=== PATIENT | male | born 1950 | race Hispanic/Latino ===

== ENCOUNTER → 2017-12-03 | Outpatient (CLI) | payer OTHER ==
[~2017-12-03] MED LIST: ASPI-1005 PO; ATOR20TA65 PO; BACL10TA PO; DILT240C11 PO; DILT240C3 PO; FURO20TA6 PO; FURO40TA5 PO; HYDR25TA PO; INSLAN SQ; LORA0.5T2 PO; METF10004 PO; METO25 PO; OXYC10TA48 PO; PRAV20TA4 PO; PROP10DR2 OU; TRAN4TAB24 PO; XALA2.5OS OU
== END | disposition home or self-care (01) ==
LOC: OIH 11:50
PROVIDERS: ATTEND Internal Medicine Cardiovascular Disease
DX: Z13.6 Encounter for screening for cardiovascular disorders (principal)
CPT/HCPCS: 75571

== ENCOUNTER → 2017-12-16 | Outpatient (CLI) | payer OTHER ==
[~2017-12-16] MED LIST changes: +REGADENOSON 0.4 MG/5 ML PF SYG IVP SCH
== END | disposition home or self-care (01) ==
LOC: SHCH 12:40
PROVIDERS: ATTEND Internal Medicine Cardiovascular Disease
DX: I25.10 Atherosclerotic heart disease of native coronary artery without angina pectoris (principal); I10 Essential (primary) hypertension
CPT/HCPCS: 78452; 93017; 96374; A9500 ×2; J2785

== ENCOUNTER 2018-01-06 05:53 | Day surgery (SDC) | payer OTHER ==
[2018-01-04 11:45] VITALS: BP 164/88
[2018-01-04 11:58] LABS: BASOPHILS % (AUTO) 0.5 % (0.0-5.0); HEMATOCRIT 38.1 % (42-54); LYMPHOCYTES % (AUTO) 18.5 % (21.0-51.0); MEAN CORPUSCULAR HGB CONC 34.5 g/dL (32.0-36.0); PLATELET COUNT (AUTO) 241 K/uL (130-400); RED BLOOD CELL COUNT(AUTO) 4.23 MIL/uL (4.50-6.20); RED CELL DISTRIBUTION WIDTH 16.2 % (11.0-15.5); WHITE BLOOD COUNT (AUTO) 7.6 K/uL (4.8-10.8)
[2018-01-04 12:03] LABS: APPEARANCE,URINE Clear (CLEAR); BILIRUBIN,URINE Negative (NEGATIVE); COLOR,URINE Yellow (YELLOW); GLUCOSE, URINE (UA) Negative (NEGATIVE); KETONES,URINE Negative (NEGATIVE); LEUKOCYTE ESTERASE ,URINE Negative (NEGATIVE); NITRATE,URINE Negative (NEGATIVE); OCCULT BLOOD,URINE Negative (NEGATIVE); PROTEIN,URINE Negative (NEGATIVE)
[2018-01-04 12:04] LABS: CREATININE 1.4 mg/dL (0.5-1.5); POTASSIUM 3.8 mmol/L (3.5-5.1)
[2018-01-04 12:12] LABS: INR 0.91 (0.85-1.15); PARTIAL THROMBOPLASTIN TIME 23.1 SEC (26.3-35.5); PROTHROMBIN TIME 9.6 SEC (9.6-11.6)
[2018-01-06] VITALS (18 sets, daily range): BP systolic 109–157; BP diastolic 58–79
[~2018-01-06] VITALS: Ht 162.6 cm; Wt 67.3 kg
[~2018-01-06 05:53] MED LIST changes: +ACETAMINOPHEN 325 MG TAB PO PRN; -ASPI-1005 PO; -ATOR20TA65 PO; -DILT240C11 PO; -DILT240C3 PO; -FURO20TA6 PO; -METO25 PO; -PROP10DR2 OU; -REGADENOSON 0.4 MG/5 ML PF SYG IVP SCH; +SODIUM CHLORIDE 0.9% 500ML 500 ML IV SCH; -TRAN4TAB24 PO; -XALA2.5OS OU
[2018-01-06] MEDS ORDERED: SODIUM CHLORIDE 0.9% 1000ML 1,000 ML IV SCH (06:00)
[2018-01-06] MEDS ORDERED: IOPAMIDOL-370 100 ML VIAL IV ONE (08:29)
[2018-01-06] MEDS ORDERED: HEPARIN SODIUM 1000UNIT/ML 10ML VIAL ONE (08:29)
[2018-01-06] MEDS ORDERED: ISOVUE-370 50ML VIAL IV ONE (08:30)
[2018-01-06] MEDS ORDERED: LIDOCAINE HCL 2% 20ML ONE (08:30)
[2018-01-06] MEDS ORDERED: LABETALOL HCL 5 MG/ML 20ML VIAL IV ONE (09:03)
[2018-01-06] MEDS ORDERED: GLUCAGON 1MG KIT 1 MG ML IM PRN (09:15)
[2018-01-06] MEDS ORDERED: DEXTROSE 5 %-0.45 % NACL 1,000 ML IV SCH (09:15)
[2018-01-06] MEDS ORDERED: DEXTROSE 50%-WATER 50 ML DISP.SYRIN IV PRN (09:15)
[2018-01-06] MEDS ORDERED: ATROPINE SULFATE 0.1 MG/ML 10 ML SYG IVP ONE (09:35)
[2018-01-06] MEDS: INSULIN HUMULIN R 100 UNIT/ML 3ML SQ SCH ×2 (11:30→17:54)
[2018-01-06] MEDS ORDERED: ACETAMINOPHEN EXTRA STRENGTH 500 MG TABLET ONE (15:49)
== END 2018-01-06 18:20 | disposition home or self-care (01) ==
LOC: DAH 05:53
PROVIDERS: ATTEND Internal Medicine Cardiovascular Disease
DX: I25.118 Atherosclerotic heart disease of native coronary artery with other forms of angina pectoris (principal); E11.9 Type 2 diabetes mellitus without complications; E78.00 Pure hypercholesterolemia, unspecified; M54.5 Low back pain; Z79.2 Long term (current) use of antibiotics; Z79.4 Long term (current) use of insulin; Z79.84 Long term (current) use of oral hypoglycemic drugs; Z79.899 Other long term (current) drug therapy; Z79.891 Long term (current) use of opiate analgesic
CPT/HCPCS: 36415; 71045; 80048; 81003; 82948 ×3; 85025; 85610; 85730; 93005; 93458; C1894; J1644 ×2; J1815 ×2; J3490 ×2; Q9967 ×2; J0461

== ENCOUNTER 2018-01-17 12:15 | Inpatient (IN) | payer OTHER ==
[~2018-01-17] VITALS: Ht 162.6 cm; Wt 75.7 kg
[~2018-01-17 12:15] MED LIST changes: -ACETAMINOPHEN 325 MG TAB PO PRN; -SODIUM CHLORIDE 0.9% 500ML 500 ML IV SCH
[2018-01-17 13:50] VITALS: BP 135/72
[2018-01-17 14:20] LABS: BASOPHILS % (AUTO) 0.7 % (0.0-5.0); EOSINOPHILS % (AUTO) 3.4 % (0.0-8.0); HEMATOCRIT 38.3 % (42-54); MEAN CORPUSCULAR HEMOGLOBIN 31.4 pg (27.0-33.0); MEAN CORPUSCULAR HGB CONC 34.7 g/dL (32.0-36.0); MEAN CORPUSCULAR VOLUME 90.4 fL (79-99); MONOCYTES % (AUTO) 7.1 % (3.0-13.0); NEUTROPHILS % (AUTO) 64.8 % (40.0-77.0); PLATELET COUNT (AUTO) 251 K/uL (130-400); RED BLOOD CELL COUNT(AUTO) 4.24 MIL/uL (4.50-6.20); RED CELL DISTRIBUTION WIDTH 14.8 % (11.0-15.5); WHITE BLOOD COUNT (AUTO) 7.3 K/uL (4.8-10.8)
[2018-01-17 14:32] LABS: HEMOGLOBIN A1C 8.1 % (4.0-6.0); INR 0.92 (0.85-1.15); PROTHROMBIN TIME 9.7 SEC (9.6-11.6)
[2018-01-17 14:46] LABS: BILIRUBIN,TOTAL 0.3 mg/dL (0.2-1.0); CREATININE 1.2 mg/dL (0.5-1.5); POTASSIUM 3.6 mmol/L (3.5-5.1); TOTAL PROTEIN, SERUM 7.7 g/dL (6.0-8.3)
[2018-01-17] MEDS ORDERED: DILT240C3 PO (14:51)
[2018-01-17] MEDS ORDERED: PROP10DR2 OU (14:51)
[2018-01-17] MEDS ORDERED: XALA2.5OS OU (14:51)
[2018-01-17] MEDS ORDERED: THROMBIN-JMI 5000 UNIT/VIAL TP ONE (15:04)
[2018-01-17] MEDS ORDERED: HEPARIN SODIUM 1000UNIT/ML 10ML VIAL ONE (15:04)
[2018-01-18] VITALS (17 sets, daily range): BP systolic 108–146; BP diastolic 52–81
[2018-01-18] MEDS ORDERED: LIDOCAINE PF 2% 5ML ABBOJECT ONE (08:53)
[2018-01-18] MEDS ORDERED: GLYCOPYRROLATE 0.2 MG/ML 5 ML VIAL ONE (08:53)
[2018-01-18] MEDS ORDERED: AMIODARONE HCL 900MG/18ML IV ONE (08:53)
[2018-01-18] MEDS ORDERED: HEPARIN SODIUM 1000UNIT/ML 10ML VIAL ONE ×2 (08:53→11:16)
[2018-01-18] MEDS ORDERED: EPINEPHRINE 1 MG/ML AMPULE ONE (08:53)
[2018-01-18] MEDS ORDERED: ESMOLOL HCL 10 MG/ML 10 ML VIAL ONE (08:53)
[2018-01-18] MEDS ORDERED: NOREPINEPHRINE BITARTRATE 1 MG/1 ML ML IV ONE (08:53)
[2018-01-18] MEDS ORDERED: PROTAMINE SULFATE 10 MG/ML 25ML VIAL IV ONE (08:53)
[2018-01-18] MEDS ORDERED: AMINOCAPROIC ACID 250 MG/ML 20 ML VIAL IV ONE ×2 (08:53→09:52)
[2018-01-18] MEDS ORDERED: MILRINONE-D5W 20 MG/100 ML 0 ML IV ONE (08:53)
[2018-01-18] MEDS ORDERED: ROCURONIUM BROMIDE 10MG/1ML 5ML VL ONE (08:53)
[2018-01-18] MEDS ORDERED: MIDAZOLAM HCL 1 MG/ML 5ML VIAL ONE (08:54)
[2018-01-18] MEDS ORDERED: PROPOFOL 10 MG/ML 20ML VIAL IV ONE (08:54)
[2018-01-18] MEDS ORDERED: NITROGLYCERIN 50 MG/D5% WATER 1 BOT ONE (10:00)
[2018-01-18] MEDS ORDERED: EPINEPHRINE 1 MG/ML 30ML VIAL IJ ONE (10:00)
[2018-01-18] MEDS: CEFUROXIME SODIUM 1.5 GM VIAL IVP SCH ×3 (10:30→22:22)
[2018-01-18] MEDS ORDERED: SODIUM CHLORIDE 0.9% 1000ML 1,000 ML IV ONE (10:42)
[2018-01-18] MEDS ORDERED: THROMBIN-JMI 5000 UNIT/VIAL TP ONE (11:17)
[2018-01-18 11:33] LABS: ABG BASE EXCESS 4.8 mmol/L (-2.0-3.0); ABG HCO3 27.7 mmol/L (21.0-28.0); ABG OXYGEN SATURATION 98.9 % (95.0-99.0); ABG PCO2 35 mmHg (35-48)
[2018-01-18] MEDS ORDERED: OCTYL 2-CYANOACRYLATE 1 EACH TP ONE (11:38)
[2018-01-18] MEDS ORDERED: PAPAVERINE HCL 30 MG/ML 2ML VIAL ONE (11:38)
[2018-01-18] MEDS ORDERED: BACITRACIN 50,000 UNIT VIAL ONE (11:39)
[2018-01-18] MEDS ORDERED: FENTANYL CITRATE PF 50 MCG/1 ML 2ML VIAL ONE ×2 (13:31)
[2018-01-18 13:37] LABS: ABG BASE EXCESS -3.9 mmol/L (-2.0-3.0); ABG HCO3 21.1 mmol/L (21.0-28.0); ABG OXYGEN SATURATION 98.9 % (95.0-99.0); ABG PCO2 38 mmHg (35-48)
[2018-01-18] MEDS ORDERED: POTASSIUM CHLORIDE 20MEQ/100ML 100 ML IV ONE ×2 (13:37→14:31)
[2018-01-18] MEDS ORDERED: SODIUM CHLORIDE 0.9% 500ML 500 ML IV SCH (14:03)
[2018-01-18] MEDS ORDERED: PROPOFOL 1000 MG/100 ML 100 ML IV PRN (14:15)
[2018-01-18] MEDS ORDERED: NOREPINEPHRINE 4MG/NS 250ML 250 ML IV PRN (14:15)
[2018-01-18] MEDS ORDERED: NITROGLYCERIN 50 MG/D5% WATER 250 BOT IV SCH (14:15)
[2018-01-18] MEDS ORDERED: SODIUM CHLORIDE 0.9% 10 ML VIAL IVP PRN (14:15)
[2018-01-18] MEDS ORDERED: ACETAMINOPHEN 650 MG SUPPOSITORY RC PRN (14:15)
[2018-01-18] MEDS ORDERED: DEXTROSE 50%-WATER 50 ML DISP.SYRIN IV PRN (14:15)
[2018-01-18] MEDS ORDERED: MORPHINE SULFATE 2 MG/ML 1ML SYG IV PRN (14:15)
[2018-01-18] MEDS ORDERED: GLUCAGON 1MG KIT 1 MG ML IM PRN (14:15)
[2018-01-18] MEDS ORDERED: MAGNESIUM 2GM PREMIX 50ML 50 ML IV PRN (14:15)
[2018-01-18] MEDS ORDERED: MORPHINE SULFATE 4 MG/1ML SYG IV PRN (14:15)
[2018-01-18] MEDS ORDERED: EPINEPHRINE 2 MG in SODIUM CHLORIDE 0.9% 250 ML IV PRN (14:15)
[2018-01-18] MEDS ORDERED: SODIUM CHLORIDE 0.9% 250 ML IV PRN (14:15)
[2018-01-18] MEDS ORDERED: SODIUM CHLORIDE 0.9% 1000ML 1,000 ML IV SCH (14:15)
[2018-01-18] MEDS ORDERED: AMINOCAPROIC ACID 15,000 MG in SODIUM CHLORIDE 0.9% 250 ML IV SCH (14:15)
[2018-01-18] MEDS ORDERED: SODIUM BICARB 8.4% 50ML SYRINGE IV PRN (14:15)
[2018-01-18] MEDS ORDERED: ALBUMIN (HUMAN) 5% 250 ML IV PRN (14:15)
[2018-01-18] MEDS ORDERED: POTASSIUM PHOS 15 mMOL+NS250ML 250 ML IV PRN (14:15)
[2018-01-18] MEDS ORDERED: CALCIUM GLUCONATE 1 GM in SODIUM CHLORIDE 0.9% 50 ML IV PRN (14:15)
[2018-01-18] MEDS ORDERED: ONDANSETRON HCL MDV 20ML 2 MG/ML VIAL IV PRN (14:15)
[2018-01-18] MEDS ORDERED: NICARDIPINE HCL 100 MG in SODIUM CHLORIDE 0.9% 100 ML IV PRN (14:15)
[2018-01-18 14:29] LABS: ABG BASE EXCESS -2.4 mmol/L (-2.0-3.0); ABG PCO2 36 mmHg (35-48)
[2018-01-18 15:32] LABS: ABG BASE EXCESS -4.7 mmol/L (-2.0-3.0); ABG OXYGEN SATURATION 98.7 % (95.0-99.0); ABG PCO2 41 mmHg (35-48)
[2018-01-18 15:36] LABS: HEMATOCRIT 32.1 % (42-54); MEAN CORPUSCULAR HEMOGLOBIN 32.8 pg (27.0-33.0); MEAN CORPUSCULAR VOLUME 91.3 fL (79-99); PLATELET COUNT (AUTO) 286 K/uL (130-400); RED BLOOD CELL COUNT(AUTO) 3.52 MIL/uL (4.50-6.20); RED CELL DISTRIBUTION WIDTH 14.5 % (11.0-15.5); WHITE BLOOD COUNT (AUTO) 26.8 K/uL (4.8-10.8)
[2018-01-18 15:48] LABS: CREATININE 1.4 mg/dL (0.5-1.5); MAGNESIUM 1.2 mg/dL (1.80-2.40); PHOSPHORUS 4.2 mg/dL (2.5-4.9); POTASSIUM 3.4 mmol/L (3.5-5.1)
[2018-01-18] MEDS: POTASSIUM CHLORIDE 20MEQ/100ML 100 ML IV PRN ×4 (15:55→22:21)
[2018-01-18] MEDS: INSULIN REGULAR, HUMAN 3ML 100 UNIT in SODIUM CHLORIDE 0.9% 99 ML IV SCH ×4 (15:57→21:41)
[2018-01-18 17:58] LABS: ABG BASE EXCESS -6.5 mmol/L (-2.0-3.0); ABG HCO3 20.1 mmol/L (21.0-28.0); ABG OXYGEN SATURATION 97.3 % (95.0-99.0); ABG PCO2 44 mmHg (35-48)
[2018-01-18 19:03] LABS: ABG BASE EXCESS -1.4 mmol/L (-2.0-3.0); ABG HCO3 24.1 mmol/L (21.0-28.0); ABG OXYGEN SATURATION 98.7 % (95.0-99.0); ABG PCO2 44 mmHg (35-48)
[2018-01-18 21:17] LABS: ABG BASE EXCESS -1.1 mmol/L (-2.0-3.0); ABG HCO3 23.9 mmol/L (21.0-28.0); ABG OXYGEN SATURATION 98.4 % (95.0-99.0); ABG PCO2 41 mmHg (35-48)
[2018-01-18] MEDS: HYDROCODONE/ACETAMINOPHEN 5/325 MG TAB PO PRN (21:28)
[2018-01-18] MEDS ORDERED: CEFUROXIME 1.5GM+NS 100ML 100 ML IV SCH (22:15)
[2018-01-19] VITALS (33 sets, daily range): BP systolic 80–140; BP diastolic 45–63
[2018-01-19] MEDS: ACETAMINOPHEN 325 MG TAB PO PRN ×2 (00:51→21:07)
[2018-01-19 04:24] LABS: HEMATOCRIT 29.4 % (42-54); MEAN CORPUSCULAR HEMOGLOBIN 31.9 pg (27.0-33.0); MEAN CORPUSCULAR HGB CONC 34.9 g/dL (32.0-36.0); MEAN CORPUSCULAR VOLUME 91.4 fL (79-99); PLATELET COUNT (AUTO) 244 K/uL (130-400); RED BLOOD CELL COUNT(AUTO) 3.22 MIL/uL (4.50-6.20); RED CELL DISTRIBUTION WIDTH 14.9 % (11.0-15.5); WHITE BLOOD COUNT (AUTO) 17.1 K/uL (4.8-10.8)
[2018-01-19 04:51] LABS: CREATININE 1.6 mg/dL (0.5-1.5); MAGNESIUM 1.5 mg/dL (1.80-2.40); PHOSPHORUS 1.5 mg/dL (2.5-4.9); POTASSIUM 4.2 mmol/L (3.5-5.1)
[2018-01-19] MEDS ORDERED: ARTIFICAL TEARS SOL 15 ML OU PRN (06:30)
[2018-01-19] MEDS: PANTOPRAZOLE SODIUM 40 MG TABLET.DR PO SCH (08:55)
[2018-01-19] MEDS: CEFUROXIME SODIUM 1.5 GM VIAL IVP SCH ×2 (09:14→21:10)
[2018-01-19] MEDS: ASPIRIN 81MG TAB.CHEW PO SCH (09:18)
[2018-01-19] MEDS: ATORVASTATIN CALCIUM 20 MG TABLET PO SCH (10:28)
[2018-01-19] MEDS: HYDROCODONE/ACETAMINOPHEN 5/325 MG TAB PO PRN ×2 (11:45→18:28)
[2018-01-19] MEDS: LATANOPROST 2.5 ML DROPS OU SCH (21:08)
[2018-01-19] MEDS: INSULIN REGULAR, HUMAN 3ML 100 UNIT in SODIUM CHLORIDE 0.9% 99 ML IV SCH ×2 (21:35)
[2018-01-20] VITALS (19 sets, daily range): BP systolic 99–129; BP diastolic 52–89
[2018-01-20 03:39] LABS: CREATININE 1.3 mg/dL (0.5-1.5); PHOSPHORUS 3.5 mg/dL (2.5-4.9); POTASSIUM 4.1 mmol/L (3.5-5.1)
[2018-01-20 03:50] LABS: HEMATOCRIT 22.9 % (42-54); MEAN CORPUSCULAR HEMOGLOBIN 32.5 pg (27.0-33.0); MEAN CORPUSCULAR HGB CONC 35.3 g/dL (32.0-36.0); PLATELET COUNT (AUTO) 145 K/uL (130-400); RED BLOOD CELL COUNT(AUTO) 2.49 MIL/uL (4.50-6.20); RED CELL DISTRIBUTION WIDTH 15.2 % (11.0-15.5)
[2018-01-20] MEDS: HYDROCODONE/ACETAMINOPHEN 5/325 MG TAB PO PRN ×3 (04:00→20:39)
[2018-01-20 06:23] LABS: BAND NEUTROPHILS % (MANUAL) 6 % (0-2); BASOPHILS % (MANUAL) 1 % (0-2); LYMPHOCYTES % (MANUAL) 5 % (22-44); MAN.DIFF COMMENT-IMPRESSION MANUAL DIFFERENTIAL; MONOCYTES % (MANUAL) 3 % (2-9); REACTIVE LYMPHOCYTES 1 % (0-0); SEGMENTED NEUTROPHILS % 84 % (40-70)
[2018-01-20 06:24] LABS: PLATELET MORPHOLOGY COMMENT ADEQUATE
[2018-01-20] MEDS ORDERED: GLUCAGON 1MG KIT 1 MG ML IM PRN (07:30)
[2018-01-20] MEDS ORDERED: DEXTROSE 50%-WATER 50 ML DISP.SYRIN IV PRN (07:30)
[2018-01-20] MEDS: PANTOPRAZOLE SODIUM 40 MG TABLET.DR PO SCH (08:28)
[2018-01-20] MEDS: POLYETHYLENE GLYCOL 3350 17 GM POWD.PACK PO SCH (08:28)
[2018-01-20] MEDS: ASPIRIN 81MG TAB.CHEW PO SCH (08:28)
[2018-01-20] MEDS ORDERED: FUROSEMIDE 20 MG TABLET PO SCH (10:00)
[2018-01-20] MEDS: METOPROLOL TARTRATE 25 MG TAB PO SCH (10:41)
[2018-01-20] MEDS: FERROUS FUMARATE 324 MG TABLET PO SCH (10:49)
[2018-01-20] MEDS: INSULIN HUMULIN R 100 UNIT/ML 3ML SQ SCH ×3 (11:28→21:55)
[2018-01-20] MEDS: ACETAMINOPHEN 325 MG TAB PO PRN (15:02)
[2018-01-20] MEDS: LATANOPROST 2.5 ML DROPS OU SCH (20:32)
[2018-01-20] MEDS: ATORVASTATIN CALCIUM 20 MG TABLET PO SCH (20:32)
[2018-01-20] MEDS ORDERED: ATORVASTATIN CALCIUM 10 MG TABLET PO SCH (21:00)
[2018-01-21] MEDS: HYDROCODONE/ACETAMINOPHEN 5/325 MG TAB PO PRN ×3 (02:12→15:41)
[2018-01-21 03:25] VITALS: BP 123/68
[2018-01-21 04:38] LABS: HEMATOCRIT 22.6 % (42-54); MEAN CORPUSCULAR HEMOGLOBIN 32.1 pg (27.0-33.0); MEAN CORPUSCULAR HGB CONC 34.8 g/dL (32.0-36.0); MEAN CORPUSCULAR VOLUME 92.1 fL (79-99); PLATELET COUNT (AUTO) 150 K/uL (130-400); RED BLOOD CELL COUNT(AUTO) 2.46 MIL/uL (4.50-6.20); RED CELL DISTRIBUTION WIDTH 14.4 % (11.0-15.5); WHITE BLOOD COUNT (AUTO) 6.9 K/uL (4.8-10.8)
[2018-01-21 04:51] LABS: CREATININE 1.2 mg/dL (0.5-1.5); POTASSIUM 3.9 mmol/L (3.5-5.1)
[2018-01-21] MEDS: INSULIN HUMULIN R 100 UNIT/ML 3ML SQ SCH ×3 (06:04→17:14)
[2018-01-21 07:46] VITALS: BP 113/64
[2018-01-21] MEDS: METOPROLOL TARTRATE 25 MG TAB PO SCH ×2 (08:12→09:08)
[2018-01-21] MEDS: POLYETHYLENE GLYCOL 3350 17 GM POWD.PACK PO SCH ×2 (08:12→09:08)
[2018-01-21] MEDS: ASPIRIN 81MG TAB.CHEW PO SCH (09:08)
[2018-01-21] MEDS: FUROSEMIDE 20 MG TABLET PO SCH (09:08)
[2018-01-21] MEDS: PANTOPRAZOLE SODIUM 40 MG TABLET.DR PO SCH (09:08)
[2018-01-21] MEDS: FERROUS FUMARATE 324 MG TABLET PO SCH (09:09)
[2018-01-21] MEDS: ENOXAPARIN SODIUM 30 MG/0.3 ML SQ SCH (09:12)
[2018-01-21 12:03] VITALS: BP 105/60
[2018-01-21 16:00] VITALS: BP 115/64
[2018-01-21 19:38] VITALS: BP 128/70
[2018-01-21] MEDS: ATORVASTATIN CALCIUM 20 MG TABLET PO SCH (20:45)
[2018-01-21] MEDS: LATANOPROST 2.5 ML DROPS OU SCH (20:46)
[2018-01-22] MEDS: HYDROCODONE/ACETAMINOPHEN 5/325 MG TAB PO PRN (02:41)
[2018-01-22 03:56] VITALS: BP 134/72
[2018-01-22] MEDS: INSULIN HUMULIN R 100 UNIT/ML 3ML SQ SCH ×5 (06:00→20:45)
[2018-01-22 07:00] VITALS: BP 135/64
[2018-01-22] MEDS: METOPROLOL TARTRATE 25 MG TAB PO SCH (10:00)
[2018-01-22] MEDS: POLYETHYLENE GLYCOL 3350 17 GM POWD.PACK PO SCH (10:00)
[2018-01-22] MEDS: ASPIRIN 81MG TAB.CHEW PO SCH (10:00)
[2018-01-22] MEDS: FUROSEMIDE 20 MG TABLET PO SCH (10:00)
[2018-01-22] MEDS: PANTOPRAZOLE SODIUM 40 MG TABLET.DR PO SCH (10:00)
[2018-01-22] MEDS: FERROUS FUMARATE 324 MG TABLET PO SCH (10:01)
[2018-01-22] MEDS: ENOXAPARIN SODIUM 30 MG/0.3 ML SQ SCH (10:03)
[2018-01-22 11:00] VITALS: BP 126/68
[2018-01-22 16:00] VITALS: BP 117/63
[2018-01-22 19:34] VITALS: BP 114/58
[2018-01-22] MEDS: ATORVASTATIN CALCIUM 20 MG TABLET PO SCH (19:49)
[2018-01-22] MEDS: TRAMADOL HCL 50 MG TABLET PO PRN (19:50)
[2018-01-22] MEDS: LATANOPROST 2.5 ML DROPS OU SCH (19:51)
[2018-01-22] MEDS: INSULIN GLARGINE 100 UNITS/ML 10 ML VIAL SQ SCH (20:44)
[2018-01-23] VITALS (7 sets, daily range): BP systolic 105–127; BP diastolic 61–69
[2018-01-23] MEDS: ACETAMINOPHEN 325 MG TAB PO PRN ×5 (04:24→23:40)
[2018-01-23 04:51] LABS: HEMATOCRIT 23.1 % (42-54); MEAN CORPUSCULAR HEMOGLOBIN 32.2 pg (27.0-33.0); MEAN CORPUSCULAR HGB CONC 34.8 g/dL (32.0-36.0); MEAN CORPUSCULAR VOLUME 92.6 fL (79-99); NUCLEATED RED BLOOD CELLS 0.1 % (0.0-0.19); PLATELET COUNT (AUTO) 201 K/uL (130-400); RED BLOOD CELL COUNT(AUTO) 2.49 MIL/uL (4.50-6.20); WHITE BLOOD COUNT (AUTO) 6.2 K/uL (4.8-10.8)
[2018-01-23 05:04] LABS: CREATININE 1.2 mg/dL (0.5-1.5); POTASSIUM 4.3 mmol/L (3.5-5.1)
[2018-01-23] MEDS: INSULIN HUMULIN R 100 UNIT/ML 3ML SQ SCH ×4 (06:10→21:33)
[2018-01-23] MEDS ORDERED: ASPI-1005 PO (06:43)
[2018-01-23] MEDS ORDERED: METO25 PO (06:43)
[2018-01-23] MEDS ORDERED: FURO20TA6 PO (06:43)
[2018-01-23] MEDS ORDERED: ATOR20TA65 PO (06:43)
[2018-01-23] MEDS: FERROUS FUMARATE 324 MG TABLET PO SCH (09:07)
[2018-01-23] MEDS: PANTOPRAZOLE SODIUM 40 MG TABLET.DR PO SCH (09:07)
[2018-01-23] MEDS: FUROSEMIDE 20 MG TABLET PO SCH (09:07)
[2018-01-23] MEDS: ASPIRIN 81MG TAB.CHEW PO SCH (09:07)
[2018-01-23] MEDS: POLYETHYLENE GLYCOL 3350 17 GM POWD.PACK PO SCH (09:08)
[2018-01-23] MEDS: METOPROLOL TARTRATE 25 MG TAB PO SCH (09:08)
[2018-01-23] MEDS: ENOXAPARIN SODIUM 30 MG/0.3 ML SQ SCH (09:16)
[2018-01-23] MEDS: ATORVASTATIN CALCIUM 20 MG TABLET PO SCH (21:31)
[2018-01-23] MEDS: LATANOPROST 2.5 ML DROPS OU SCH (21:34)
[2018-01-23] MEDS: INSULIN GLARGINE 100 UNITS/ML 10 ML VIAL SQ SCH (21:34)
[2018-01-24] MEDS: TRAMADOL HCL 50 MG TABLET PO PRN ×2 (02:21→13:37)
[2018-01-24 03:49] VITALS: BP 139/61
[2018-01-24] MEDS: ACETAMINOPHEN 325 MG TAB PO PRN ×2 (05:44→11:50)
[2018-01-24] MEDS: INSULIN HUMULIN R 100 UNIT/ML 3ML SQ SCH ×3 (06:04→16:46)
[2018-01-24 07:20] VITALS: BP 125/63
[2018-01-24] MEDS: PANTOPRAZOLE SODIUM 40 MG TABLET.DR PO SCH (07:57)
[2018-01-24] MEDS: FUROSEMIDE 20 MG TABLET PO SCH (07:57)
[2018-01-24] MEDS: METOPROLOL TARTRATE 25 MG TAB PO SCH (07:57)
[2018-01-24] MEDS: POLYETHYLENE GLYCOL 3350 17 GM POWD.PACK PO SCH (07:57)
[2018-01-24] MEDS: ASPIRIN 81MG TAB.CHEW PO SCH (07:57)
[2018-01-24] MEDS: FERROUS FUMARATE 324 MG TABLET PO SCH (07:57)
[2018-01-24] MEDS: ENOXAPARIN SODIUM 30 MG/0.3 ML SQ SCH (07:58)
[2018-01-24] MEDS ORDERED: LISINOPRIL 2.5 MG TABLET PO SCH (09:00)
[2018-01-24] MEDS ORDERED: METOPROLOL TARTRATE 25 MG TAB PO SCH (09:00)
[2018-01-24 11:09] VITALS: BP 112/60
[2018-01-24 16:01] VITALS: BP 135/69
== END 2018-01-24 17:24 | disposition home or self-care (01) | DRG 235 ==
LOC: DAHIP 01-18 09:02 → 2CV 01-18 11:14 → EDSTATUS 01-18 12:15 → 2CH 01-19 16:28 → 2DH 01-20 14:50
PROVIDERS: ADMIT Thoracic Surgery (Cardiothoracic Vascular Surgery); ATTEND Thoracic Surgery (Cardiothoracic Vascular Surgery)
PROC: 02100Z9 Bypass Coronary Artery, One Artery from Left Internal Mammary, Open Approach (ICD-10-PCS; principal; 2018-01-18 11:00)
PROC: 021209W Bypass Coronary Artery, Three Arteries from Aorta with Autologous Venous Tissue, Open Approach (ICD-10-PCS; 2018-01-18 11:00)
PROC: 06BQ4ZZ Excision of Left Saphenous Vein, Percutaneous Endoscopic Approach (ICD-10-PCS; 2018-01-18 11:00)
DX: I25.119 Atherosclerotic heart disease of native coronary artery with unspecified angina pectoris (principal); R53.2 Functional quadriplegia; G83.9 Paralytic syndrome, unspecified; I11.9 Hypertensive heart disease without heart failure; E11.65 Type 2 diabetes mellitus with hyperglycemia; D64.9 Anemia, unspecified; E78.00 Pure hypercholesterolemia, unspecified; E78.5 Hyperlipidemia, unspecified; G89.29 Other chronic pain; H40.9 Unspecified glaucoma; M10.9 Gout, unspecified; M51.9 Unspecified thoracic, thoracolumbar and lumbosacral intervertebral disc disorder; M19.90 Unspecified osteoarthritis, unspecified site; Z79.82 Long term (current) use of aspirin; Z79.899 Other long term (current) drug therapy; Z87.891 Personal history of nicotine dependence; Z82.49 Family history of ischemic heart disease and other diseases of the circulatory system
CPT/HCPCS: 36415; 36600; 71045; 71046; 80048; 80053; 82330; 82435; 82803; 82947; 82948; 83036; 83605; 83735; 84100; 84132; 84295; 85018; 85025; 85027; 85347; 85610; 85730; 86850; 86900; 86901; 86922; 94002; 94010; 94150; 97039; A4218; A7048; J0171; J0282; J0697; J1644; J1650; J1815; J2001; J2250; J2260; J2440; J2704; J2720; J3010; J3475; J3480; J3490; J7030; J7040